=== PATIENT | female | born 1940 | race Caucasian/White ===

== ENCOUNTER → 2017-07-26 | Outpatient (CLI) | payer MEDICARE | END | disposition home or self-care (01) | LOC: GMAB 11:37 | PROVIDERS: ATTEND Family Medicine | DX: E03.9 Hypothyroidism, unspecified (principal) ==

== ENCOUNTER → 2018-08-02 | Outpatient (CLI) | payer MEDICARE | LOC: GMAE 11:35 | PROVIDERS: ATTEND Family Medicine | DX: E03.9 Hypothyroidism, unspecified (principal) ==

== ENCOUNTER → 2019-06-15 | Outpatient (CLI) | payer MEDICARE ==
--- NOTE | 2019-06-15 14:47 | MRI ---
EXAM DESCRIPTION: Lumbar Spine w/o Contrast : Magnetic Resonance Imaging. CLINICAL HISTORY: LOW BACK PAIN COMPARISON: None. TECHNIQUE: Multiplanar, multiple standard sequences, non contrast MRI, lumbar spine. FINDINGS: L5-S1: The disc is well visualized on axial T2 series 501, image 3. Desiccation of the disc and disc space preserved; posterior broad-based 3 mm bulge slightly more bulging in the midline. Bilateral hypertrophic facet arthrosis with effusion right facet. Hypertrophic bilateral posterior flavum ligaments. AP canal diameter 8.5 mm. Moderate right foraminal narrowing and moderate to severe left foraminal narrowing. L4-L5: Disc desiccation with mild disc space loss. 2 mm grade 1 anterolisthesis. Posterior broad-based 2 mm disc bulge. Advanced bilateral hypertrophic facet arthrosis with ligament thickening. AP canal diameter 6 mm. Bilateral subarticular recesses are nearly stenotic. Right L4 pars interarticularis not well seen. Left L4 pars is intact moderate right foraminal narrowing and mild to moderate left foraminal narrowing. L3-L4: Disc desiccation with disc space preserved. Trace anterolisthesis. Minimal posterior bulge. Posterior bilateral hypertrophic facet arthrosis and ligament thickening. AP canal diameter 9.5 mm. Bilateral mild foraminal narrowing. L2-L3: Disc desiccation with disc space preserved. Bilateral hypertrophic facet arthrosis and thickening of the ligaments. Mild canal narrowing. Bilateral foramina patent. Circumscribed hyperintense T1 and T2 signal in the anterior L2 vertebral body abutting the inferior endplate consistent with a hemangioma. L1-L2: Disc desiccation with anterior endplate reaction mild. Schmorl's node inferior endplate. Disc space preserved with mild posterior disc bulge. Minimal hypertrophy of the ligament and arthritic facet joints. Mild canal narrowing. Normal signal in the T12-L1 disc with no bulging. Posterior elements unremarkable. Canal and foramina are patent. L3-S1 levoscoliosis. Paravertebral soft tissues paraspinal muscle atrophy mostly inferior.. Distal cord normal signal and caliber. Normal marrow signal in the remaining vertebral bodies and the posterior elements. Vertebral bodies are not compressed at any level. IMPRESSION: 1. Multiple levels of spondylolisthesis, disc desiccation and bulging, hypertrophy of the arthritic facets and ligaments. 2. Mild central canal stenosis L5-S1 and moderate to severe left foraminal narrowing 3. L4-L5 disc desiccation and grade 1 anterolisthesis. Marked central canal stenosis and narrowing of the subarticular recesses. Questionable defect in the right L4 pars interarticularis. 4. Hypertrophy of the posterior elements at L3-L4 with borderline mild central canal stenosis.. Electronically signed by: Beau Feliz MD 06/15/2019 2:46 PM CDT
== END ==
LOC: MRI 07:42
PROVIDERS: ATTEND Family Medicine
DX: M43.16 Spondylolisthesis, lumbar region (principal); M48.061 Spinal stenosis, lumbar region without neurogenic claudication; M51.36 Other intervertebral disc degeneration, lumbar region